=== PATIENT | male | born 1975 | race Caucasian/White ===

== ENCOUNTER 2020-05-18 19:45 | Emergency (ER) | payer OTHER ==
[2020-05-18 20:36] VITALS: BP 139/94; PULSE 125; TEMP 98.3; BMI 20.5
--- NOTE | 2020-05-18 23:25 | PDOC ---
Documentation entered by Milan Walls SCRIBE, acting as scribe for Chel Corrigan MD. Chel Corrigan MD: This documentation has been prepared by the Kavita vincent Angel, SCRIBE, under my direction and personally reviewed by me in its entirety. I confirm that the documentation accurately reflects all work, treatment, procedures, and medical decision making performed by me. History of Present Illness - General Chief Complaint: Laceration Stated Complaint: FELL Time Seen by Provider: 05/18/20 20:19 History Source: Patient Exam Limitations: No Limitations - History of Present Illness Initial Comments: 05/18/20 21:43 The patient is a 45 year old male with a significant past medical history of mental retardation, cerebral palsy, and osteoporosis who presents to the ED accompanied by his sister with a laceration on the back of his head s/p fall. The patients sister states at around 2:30pm the patient fell and hit the back of his head on a wall. The sister states the wound started bleeding and after trying to stop it for a while she stopped as she says the blood kept oozing. The patient is non-verbal at baseline. The patients sister reports no LOC or vomiting after the incident. Past History - Medical History Allergies/Adverse Reactions: Allergies Allergy/AdvReac Type Severity Reaction Status Date / Time No Known Allergies Allergy Verified 05/18/20 20:24 Home Medications: Ambulatory Orders Glycopyrrolate 1 mg PO HS 03/03/14 Glycopyrrolate [Robinul -] 2 mg PO AM 03/03/14 Tizanidine HCl [Zanaflex] 4 mg PO BID 03/03/14 Calcium Carbonate/Vitamin D3 [Calcium 500 + Vit D Caplet] 1 each PO DAILY 05/18/20 Cholecalciferol (Vitamin D3) [Vitamin D3 -] 1,000 unit PO DAILY 05/18/20 Docusate Sodium [Colace] 100 mg PO DAILY 05/18/20 Fluoxetine HCl [Prozac] 60 mg PO DAILY 05/18/20 Loratadine [Claritin] 10 mg PO DAILY 05/18/20 Multivitamins [Tab-A-Vit -] 1 tab PO DAILY 05/18/20 COPD: No Other medical history: CEREBRAL PALSY - Surgical History Lung Surgery: Yes (PNUEMONIA REQUIRING A CHEST TUBE) - Psycho-Social/Smoking History Smoking History: Never smoked - Substance Abuse Hx (Audit-C & DAST Scrn) How often the patient has a drink containing alcohol: Never Score: In Men: 4 or > Positive; In Women: 3 or > Positive: 0 Screen Result (Pos requires Nsg. Audit-10AR): Negative In the last yr the pt used illegal drug/Rx for NonMed reason: No Score: Yes response is considered Positive: 0 Screen Result (Positive result requires Nsg. DAST-10): Negative Review of Systems - Review of Systems Able to Perform ROS?: Yes Comments:: 05/18/20 21:43 GENERAL/CONSTITUTIONAL: No fever or chills. No weakness. HEAD, EYES, EARS, NOSE AND THROAT: +Laceration on the occipital scalp. No change in vision. No ear pain or discharge. No sore throat. CARDIOVASCULAR: No chest pain or shortness of breath. RESPIRATORY: No cough, wheezing, or hemoptysis. GASTROINTESTINAL: No nausea, vomiting, diarrhea or constipation. GENITOURINARY: No dysuria, frequency, or change in urination. MUSCULOSKELETAL: No joint or muscle swelling or pain. No neck or back pain. SKIN: No rash NEUROLOGIC: No headache, vertigo, loss of consciousness, or change in strength/sensation. ENDOCRINE: No increased thirst. No abnormal weight change. HEMATOLOGIC/LYMPHATIC: No anemia, easy bleeding, or history of blood clots. ALLERGIC/IMMUNOLOGIC: No hives or skin allergy. *Physical Exam - Vital Signs Last Vital Signs Temp Pulse Resp BP Pulse Ox 98.3 F 125 H 18 139/94 96 05/18/20 20:05 05/18/20 20:05 05/18/20 20:05 05/18/20 20:05 05/18/20 20:05 - Physical Exam 05/18/20 21:44 GENERAL: Awake,non verbal, in no acute distress HEAD: +1.5 cm curvilinear mid occipital scalp laceration. No other lacerations, contusions, abrasions EYES: PERRLA, EOMI, sclera anicteric, conjunctiva clear ENT: Auricles normal inspection, hearing grossly normal, nares patent, oropharynx clear without exudates. Moist mucosa NECK: nontender,no masses SKIN: Warm, Dry, normal turgor, no rashes or lesions noted. Procedures - Laceration/Wound Repair Occipital Wound Length: to 2.5 cm Wound Explored: clean Wound's Depth, Shape: linear Irrigated w/ Saline: Yes Betadine Prep: No (Hibiclens/ethanol) Anesthesia: 1% Lidocaine Amount of Anesthetic (ccs): 2 Progress: Occipital laceration cleansed using Hibiclens/ethanol; wound thoroughly irrigated using sterile normal saline (approximately 50 mL). 1.5 mL of 1% lidocaine without epinephrine infiltrated into the wound for local anesthesia. Wound closed with 3 kenya. Patient tolerated procedure well ED Progress Note - Progress Note Progress Note: As noted above, this 45-year-old man with a history of mental retardation is brought into the emergency room by his sister with a history of a occipital scalp laceration. The patient had sustained this wound several hours prior to presentation when he accidentally impacted the back of his head against the wall in his home. He had no loss of consciousness with the injury and behavior has been baseline since the injury, according to his sister. There is been no nausea/vomiting and patient has eaten dinner a few hours after the injury without problems. According to the sister, the scalp laceration has been bleeding intermittently since it was sustained, despite prolonged direct pressure. Patient has no history of bleeding disorder or on any anticoagulation. Exam as noted. As noted above. The wound was cleansed and irrigated followed by 1.5 mL of 1% lidocaine infiltrated into the wound for local anesthesia. 3 interrupted kenya applied for wound closure. Bacitracin ointment applied to the wound. Patient tolerated procedure well. Sister states that they have triple antibiotic ointment at home; this will be applied daily to the wound. They will return in approximately 10 days (Thursday, May 28) for removal of kenya Discharge - Discharge Information Problems reviewed: Yes Clinical Impression/Diagnosis: Occipital scalp laceration Qualifiers: Encounter type: initial encounter Qualified Code(s): S01.01XA - Laceration without foreign body of scalp, initial encounter Closed head injury Qualifiers: Encounter type: initial encounter Qualified Code(s): S09.90XA - Unspecified injury of head, initial encounter Condition: Stable Disposition: HOME - Follow up/Referral Referrals: Tesha Patten MD [Primary Care Provider] - - Patient Discharge Instructions Patient Printed Discharge Instructions: DI for Closed Head Injury Additional Instructions: Triple antibiotic ointment to wound daily for the next 10 days Keep wound as dry as possible for 2 days, then can briefly wet until kenya removed Return for staple removal on Thursday, May 28 Return to ER if area has persistent bleeding, swelling or discharge Return to ER if patient has vomiting or severe sleepiness - Post Discharge Activity
== END 2020-05-18 21:49 | disposition home or self-care (01) ==
LOC: FER 19:45
PROC: 0JQ10ZZ Repair Face Subcutaneous Tissue and Fascia, Open Approach (ICD-10-PCS; principal; 2020-05-18)
DX: S01.01XA Laceration without foreign body of scalp, initial encounter (principal); S09.90XA Unspecified injury of head, initial encounter
CPT/HCPCS: 12011; 99284-25

== ENCOUNTER 2020-05-28 18:55 | Emergency (ER) | payer OTHER ==
[2020-05-28 19:04] VITALS: BP 102/68; PULSE 78; TEMP 98
--- NOTE | 2020-05-29 00:12 | PDOC ---
Documentation entered by Joanna Diggs SCRIBE, acting as scribe for Chel Corrigan MD. Chel Corrigan MD: This documentation has been prepared by the nikoibeDontae Lincy, SCRIBE, under my direction and personally reviewed by me in its entirety. I confirm that the documentation accurately reflects all work, treatment, procedures, and medical decision making performed by me. Suture Removal/Wound Check HPI - History of Present Illness Chief Complaint: Suture/Staple Removal(Here) Stated Complaint: STAPLE REMOVAL HEAD History Source: Yes: Sibling Exam Limitations: Yes: No Limitations - Onset of Previous Treatment Comment:: 05/28/20 19:31 The patient is a 45-year-old male with a past medical history significant for cerebral palsy and osteoporosis who presents to the emergency department accompanied by his sister for staple removal. The patient was seen at the ED on 05/18 s/p a fall with occipital scalp laceration. The wound was cleaned, irrigated and 3 kenya were applied for wound closure. The patients sister reports keeping the wound dry and applying bacitracin over the wound. Denies any redness, drainage, or discharge. Past History - Medical History Allergies/Adverse Reactions: Allergies Allergy/AdvReac Type Severity Reaction Status Date / Time No Known Allergies Allergy Verified 05/28/20 18:58 Home Medications: Ambulatory Orders Glycopyrrolate 1 mg PO HS 03/03/14 Glycopyrrolate [Robinul -] 2 mg PO AM 03/03/14 Tizanidine HCl [Zanaflex] 4 mg PO BID 03/03/14 Calcium Carbonate/Vitamin D3 [Calcium 500 + Vit D Caplet] 1 each PO DAILY 05/18/20 Cholecalciferol (Vitamin D3) [Vitamin D3 -] 1,000 unit PO DAILY 05/18/20 Docusate Sodium [Colace] 100 mg PO DAILY 05/18/20 Fluoxetine HCl [Prozac] 60 mg PO DAILY 05/18/20 Loratadine [Claritin] 10 mg PO DAILY 05/18/20 Multivitamins [Tab-A-Vit -] 1 tab PO DAILY 05/18/20 COPD: No Other medical history: CEREBRAL PALSY, BILATERAL ARMS CONTRACTURE - Surgical History Lung Surgery: Yes (PNUEMONIA REQUIRING A CHEST TUBE) - Psycho-Social/Smoking History Smoking History: Never smoked Have you smoked in the past 12 months: No Information on smoking cessation initiated: No - Substance Abuse Hx (Audit-C & DAST Scrn) How often the patient has a drink containing alcohol: Never Score: In Men: 4 or > Positive; In Women: 3 or > Positive: 0 Screen Result (Pos requires Nsg. Audit-10AR): Negative In the last yr the pt used illegal drug/Rx for NonMed reason: No Score: Yes response is considered Positive: 0 Screen Result (Positive result requires Nsg. DAST-10): Negative *Review of Systems - Review of Systems Able to Perform ROS?: No (Nonverbal at baseline. ) *Physical Exam - Vital Signs Last Vital Signs Temp Pulse Resp BP Pulse Ox 98 F 78 18 102/68 97 05/28/20 18:55 05/28/20 18:55 05/28/20 18:55 05/28/20 18:55 05/28/20 18:55 - Physical Exam 05/28/20 19:34 GENERAL: The patient is awake and alert, nonverbal at baseline. in no acute distress. HEAD: +well healed 2cm occipital scalp laceration, without edema, erythema or tenderness. Normal with no signs of trauma. SKIN: Warm, Dry, normal turgor, no rashes or lesions noted. Medical Decision Making - Medical Decision Making As noted above, this 45-year-old man with a history of cerebral palsy presents with his sister for removal of kenya placed in occipital scalp laceration last week. According his sister, there were no problems with wound healing. Exam as noted. 3 kenya removed from well-healed laceration without difficulty. Patient discharged in the company of his sister; area can be washed normally now. They should return to the emergency room if there is any new inflammation/pain in the area. Discharge - Discharge Information Problems reviewed: Yes Clinical Impression/Diagnosis: Encounter for staple removal Condition: Stable Disposition: HOME - Follow up/Referral - Patient Discharge Instructions Patient Printed Discharge Instructions: DI for Suture Removal Additional Instructions: Can wash scalp normally now return to ER if area becomes red, swollen, painful followup with your doctor as scheduled - Post Discharge Activity
== END 2020-05-28 19:40 | disposition home or self-care (01) ==
LOC: FER 18:55
DX: S01.01XA Laceration without foreign body of scalp, initial encounter (principal); Z48.02 Encounter for removal of sutures
CPT/HCPCS: 99281-25

== ENCOUNTER 2023-07-14 09:38 | Emergency (ER) | payer OTHER ==
[2023-07-14] MEDS ORDERED: LIDO 2%/EPI 1:200000 PRESRVFRE (20 ML SDVIAL) ONE (09:51)
[2023-07-14 09:53] VITALS: BP 129/76; PULSE 52; RESP 18; TEMP 98.8; BMI 22.0
== END 2023-07-14 10:31 | disposition home or self-care (01) ==
LOC: FER 09:38
PROC: 0HQ0XZZ Repair Scalp Skin, External Approach (ICD-10-PCS; principal; 2023-07-14)
DX: S01.01XA Laceration without foreign body of scalp, initial encounter (principal); W22.09XA Striking against other stationary object, initial encounter
CPT/HCPCS: 12002-25; 99282-25

== ENCOUNTER 2023-07-21 16:57 | Emergency (ER) | payer OTHER ==
[2023-07-21 17:11] VITALS: BP 122/64; PULSE 78; RESP 18; TEMP 97.6; BMI 22.0
== END 2023-07-21 17:30 | disposition home or self-care (01) ==
LOC: FER 16:57
DX: Z48.02 Encounter for removal of sutures (principal)
CPT/HCPCS: 99282-25